=== PATIENT | female | born 1950 | race Caucasian/White ===

== ENCOUNTER 2017-04-29 08:28 | Inpatient (IN) | payer BC ==
[2017-04-24 12:05] LABS: BASOPHILS % (AUTO) 0.4 % (0-1); EOSINOPHILS # (AUTO) 0.1 X10'3 (0-0.9); EOSINOPHILS % (AUTO) 2.2 % (0-6); LYMPHOCYTES # (AUTO) 1.1 X10'3 (1.1-4.8); LYMPHOCYTES % (AUTO) 16.8 % (21-51); MEAN CORPUSCULAR HEMOGLOBIN 31.7 PG (27.0-31.0); MEAN CORPUSCULAR HGB CONC 33.2 % (33.0-36.5); MEAN CORPUSCULAR VOLUME 95.4 FL (78-98); MONOCYTES # (AUTO) 0.6 X10'3 (0-0.9); MONOCYTES % (AUTO) 10.2 % (2-12); NEUTROPHILS # (AUTO) 4.4 X10'3 (1.8-7.7); NEUTROPHILS % (AUTO) 70.4 % (42-75); PRE OP HEMATOCRIT 36.6 % (35.0-45.0); PRE OP HEMOGLOBIN 12.1 g/dL (12.0-16.0); PRE OP PLATELET COUNT 242 X10'3 (140-440); RED BLOOD COUNT 3.83 X10'6 (4.20-5.60); RED CELL DISTRIBUTION WIDTH 13.2 % (11.5-14.5)
[2017-04-24 12:27] LABS: ALBUMIN 3.8 G/DL (3.4-5.0); ALBUMIN/GLOBULIN RATIO 1.1 (1.1-1.5); ALKALINE PHOSPHATASE 99 IU/L (46-116); BLOOD UREA NITROGEN 37 MG/DL (7-18); BUN/CREATININE RATIO 29.6 (6.6-38.0); CALCIUM 9.4 MG/DL (8.5-10.1); CHLORIDE 105 MMOL/L (99-107); CREATININE 1.25 MG/DL (0.40-0.90); PRE OP ANION GAP 5 (8-16); PRE OP AST 50 U/L (10-37); PRE OP BILIRUB, TOTAL 0.3 MG/DL (0.0-1.0); PRE OP GLUCOSE 78 MG/DL (70-104); PRE OP POTASSIUM 4.6 MMOL/L (3.4-5.1); PRE OP SODIUM 141 MMOL/L (135-145); TOTAL PROTEIN 7.2 G/DL (6.4-8.2); eGFR 43 ML/MIN
[2017-04-24 12:28] LABS: PRE OP ALT 89 U/L (30-65)
[2017-04-24 12:51] LABS: PRE OP PROTIME 10.4 SECONDS (9.0-12.0)
[~2017-04-29] VITALS: Ht 165.1 cm; Wt 88.5 kg
[2017-04-29] VITALS (15 sets, daily range): BP systolic 103–137; BP diastolic 45–66
[~2017-04-29 08:28] MED LIST: ALBU8.5H8 INH; BIOT10005; BUPR75TA12 PO; CITA20TA19 PO; GABA-532 PO; LEVO100T PO; LOSA50TA37 PO; MIRA25TA PO; MONT10TA21 PO; MULT-933 PO; OXYB5TAB29 PO; TUMERIC; UBID100C45 PO; [UNRECOGNIZED DRUG - CODE]; ceFAZolin 2gm in dextrose, iso 100 ML IV ONE; famotidine 20mg tablet PO ONE; ringers solution, lacted 1,000 ML IV SCH; vancomycin inj 1,500 MG in normal saline 300ml IV soln IV ONE
[2017-04-29] MEDS ORDERED: ceFAZolin 1000mg inj ONE (11:14)
[2017-04-29] MEDS ORDERED: tetracaine 1% (10mg/ml) pres. free inj. ONE (11:15)
[2017-04-29] MEDS ORDERED: fentaNYL/PF 50MCG/1 ML 2ML syringe ONE ×2 (11:24→13:11)
[2017-04-29] MEDS ORDERED: midazolam 2 mg/2 ml injection ONE ×3 (11:24→12:28)
[2017-04-29] MEDS ORDERED: MORPHINE SULFATE/PF 0.5 MG/ML 10ML AMPUL ONE (11:24)
[2017-04-29] MEDS ORDERED: propofol inj 20 ML IV ONE ×3 (11:32→13:51)
[2017-04-29] MEDS ORDERED: epiNEPHrine 1 mg/ml inj ONE (11:33)
[2017-04-29] MEDS ORDERED: tranexamic acid inj. 1,000 MG in normal saline 100ml IV soln 90 ML IV ONE (12:30)
[2017-04-29] MEDS ORDERED: phenylephrine 10mg/ml inj IV ONE (12:55)
[2017-04-29] MEDS ORDERED: diphenhydrAMINE 50 mg/ml inj ONE (12:55)
[2017-04-29] MEDS ORDERED: ePHEDrine 50MG/ML INJ. ONE (12:55)
[2017-04-29] MEDS ORDERED: glycopyrrolate 0.2mg/ml inj ONE (12:57)
[2017-04-29] MEDS ORDERED: ROPIVAcaine 0.5% (5mg/ml) 30ml vial ONE (13:30)
[2017-04-29] MEDS ORDERED: naloxone 2mg/2ml inj 1.8 MG in normal saline 500ml IV soln 500 ML IV PRN (13:46)
[2017-04-29] MEDS ORDERED: ringers solution, lacted 1,000 ML IV SCH (13:46)
[2017-04-29] MEDS ORDERED: diphenhydrAMINE 50 mg/ml inj IV PRN (13:50)
[2017-04-29] MEDS ORDERED: meperidine/PF 25mg/ml syringe IV PRN ×3 (13:50)
[2017-04-29] MEDS ORDERED: ondansetron/PF 4mg/2ml inj IV PRN ×3 (13:50→14:45)
[2017-04-29] MEDS ORDERED: proCHLORperazine 10 MG/2 ml inj IV PRN (13:50)
[2017-04-29] MEDS ORDERED: dexamethasone 4mg/ml inj ONE (14:18)
[2017-04-29] MEDS ORDERED: cloNIDine hcl/PF 100mcg/ml inj ONE (14:18)
[2017-04-29] MEDS ORDERED: diphenhydrAMINE 25mg capsule PO PRN ×2 (14:45)
[2017-04-29] MEDS ORDERED: tranexamic acid inj. 880 MG in normal saline 100ml IV soln 100 ML IV ONE (14:45)
[2017-04-29] MEDS ORDERED: HYDROmorphone 1 mg/ml syringe IV PRN (14:45)
[2017-04-29] MEDS ORDERED: bisacodyl 10mg suppository rectal RC PRN (14:45)
[2017-04-29] MEDS ORDERED: magnesium hydroxide 30ml (MOM) UD suspension PO PRN (14:45)
[2017-04-29] MEDS ORDERED: acetaminophen 325mg tablet PO PRN (14:45)
[2017-04-29] MEDS ORDERED: albuterol 2.5 MG/3 ML nebule NEB PRN (14:45)
[2017-04-29] MEDS: potassium cl 20mEq in 1/2 NS 1,000 ML IV SCH (16:34)
[2017-04-29] MEDS: cefazolin 1gm/NS 100mL 100 ML IV SCH (16:38)
[2017-04-29] MEDS: HYDROcodone/acetaminophen 10/325mg tab PO PRN ×2 (17:00→20:34)
[2017-04-29] MEDS: aspirin 81mg tab.chew PO SCH (17:32)
[2017-04-29] MEDS ORDERED: vancomycin/NS 1 GM ADD-VANTAGE 250 ML IV SCH (20:00)
[2017-04-29] MEDS: montelukast 10mg tablet PO SCH (20:33)
[2017-04-29] MEDS: sennosides 8.6mg tablet PO SCH (20:33)
[2017-04-29] MEDS: buPROPion 75mg tablet PO SCH (20:34)
[2017-04-29] MEDS: citalopram 20mg tablet PO SCH (20:34)
[2017-04-29] MEDS: gabapentin 300mg capsule PO SCH (20:34)
[2017-04-30] MEDS: cefazolin 1gm/NS 100mL 100 ML IV SCH (00:49)
[2017-04-30] MEDS: HYDROcodone/acetaminophen 10/325mg tab PO PRN ×5 (00:50→15:35)
[2017-04-30] MEDS: potassium cl 20mEq in 1/2 NS 1,000 ML IV SCH ×2 (00:55→17:37)
[2017-04-30 02:00] VITALS: BP 125/64
[2017-04-30 06:00] VITALS: BP 150/68
[2017-04-30 06:54] LABS: BASOPHILS % (AUTO) 0.1 % (0-1); EOSINOPHILS # (AUTO) 0.1 X10'3 (0-0.9); EOSINOPHILS % (AUTO) 1.3 % (0-6); HEMATOCRIT 28.4 % (35.0-45.0); HEMOGLOBIN 9.6 g/dl (12.0-16.0); LYMPHOCYTES # (AUTO) 0.4 X10'3 (1.1-4.8); MEAN CORPUSCULAR HEMOGLOBIN 31.8 PG (27.0-31.0); MEAN CORPUSCULAR HGB CONC 33.9 % (33.0-36.5); MEAN CORPUSCULAR VOLUME 93.8 FL (78-98); MEAN PLATELET VOLUME 7.8 FL (7.4-10.4); MONOCYTES # (AUTO) 1.2 X10'3 (0-0.9); NEUTROPHILS % (AUTO) 83.6 % (42-75); PLATELET COUNT 183 X10'3 (140-440); RED BLOOD COUNT 3.03 X10'6 (4.20-5.60); WHITE BLOOD COUNT 10.8 X10'3 (4.5-11.0)
[2017-04-30 07:09] LABS: ALANINE AMINOTRANSFERASE 62 U/L (12-78); ALBUMIN/GLOBULIN RATIO 1.1 (1.1-1.5); ALKALINE PHOSPHATASE 75 IU/L (46-116); ANION GAP 4 (8-16); ASPARTATE AMINO TRANSFERASE 45 U/L (10-37); BILIRUBIN,TOTAL 0.3 MG/DL (0.1-1.0); BLOOD UREA NITROGEN 29 MG/DL (7-18); BUN/CREATININE RATIO 23.6 (6.6-38.0); CHLORIDE 105 MMOL/L (99-107); CREATININE 1.23 MG/DL (0.40-0.90); GLUCOSE 149 MG/DL (70-104); POTASSIUM 4.7 MMOL/L (3.5-5.1); SODIUM 135 MMOL/L (135-145); TOTAL CARBON DIOXIDE 25.9 MMOL/L (24-32); TOTAL PROTEIN 5.8 G/DL (6.4-8.2); eGFR 44 ML/MIN
[2017-04-30] MEDS ORDERED: mirabegron 25mg ER tablet PO SCH (08:00)
[2017-04-30] MEDS: MYRBETRIQ 25 MG PO SCH (08:00)
[2017-04-30] MEDS: levoTHYROXINE 100mcg tablet PO SCH (08:32)
[2017-04-30] MEDS: aspirin 81mg tab.chew PO SCH ×2 (08:32→17:37)
[2017-04-30] MEDS: losartan 50mg tablet PO SCH (08:32)
[2017-04-30] MEDS: buPROPion 75mg tablet PO SCH ×3 (08:33→20:35)
[2017-04-30 10:00] VITALS: BP 142/66
[2017-04-30] MEDS ORDERED: ketorolac trometh. 30mg/ml inj. IM PRN (16:35)
[2017-04-30 18:30] VITALS: BP 156/114
[2017-04-30] MEDS: citalopram 20mg tablet PO SCH (20:35)
[2017-04-30] MEDS: gabapentin 300mg capsule PO SCH (20:35)
[2017-04-30] MEDS: sennosides 8.6mg tablet PO SCH (20:35)
[2017-04-30] MEDS: montelukast 10mg tablet PO SCH (20:35)
[2017-04-30 22:00] VITALS: BP 165/70
[2017-05-01] MEDS: HYDROcodone/acetaminophen 10/325mg tab PO PRN ×6 (00:53→23:54)
[2017-05-01 03:00] VITALS: BP 148/70
[2017-05-01 06:29] LABS: BASOPHILS % (AUTO) 0.1 % (0-1); EOSINOPHILS # (AUTO) 0.1 X10'3 (0-0.9); EOSINOPHILS % (AUTO) 1.4 % (0-6); HEMATOCRIT 26.6 % (35.0-45.0); HEMOGLOBIN 8.9 g/dl (12.0-16.0); LYMPHOCYTES # (AUTO) 0.8 X10'3 (1.1-4.8); LYMPHOCYTES % (AUTO) 7.6 % (21-51); MEAN CORPUSCULAR HEMOGLOBIN 31.6 PG (27.0-31.0); MEAN CORPUSCULAR HGB CONC 33.6 % (33.0-36.5); MEAN PLATELET VOLUME 7.9 FL (7.4-10.4); MONOCYTES # (AUTO) 1.4 X10'3 (0-0.9); MONOCYTES % (AUTO) 13.2 % (2-12); NEUTROPHILS % (AUTO) 77.7 % (42-75); PLATELET COUNT 160 X10'3 (140-440); RED BLOOD COUNT 2.83 X10'6 (4.20-5.60); WHITE BLOOD COUNT 10.2 X10'3 (4.5-11.0)
[2017-05-01] MEDS: potassium cl 20mEq in 1/2 NS 1,000 ML IV SCH (06:41)
[2017-05-01 06:59] LABS: ALANINE AMINOTRANSFERASE 52 U/L (12-78); ALBUMIN 2.7 G/DL (3.4-5.0); ALBUMIN/GLOBULIN RATIO 0.8 (1.1-1.5); ALKALINE PHOSPHATASE 83 IU/L (46-116); ANION GAP 6 (8-16); ASPARTATE AMINO TRANSFERASE 35 U/L (10-37); BILIRUBIN,TOTAL 0.4 MG/DL (0.1-1.0); BLOOD UREA NITROGEN 18 MG/DL (7-18); CALCIUM 8.8 MG/DL (8.5-10.1); CHLORIDE 106 MMOL/L (99-107); GLUCOSE 116 MG/DL (70-104); POTASSIUM 3.9 MMOL/L (3.5-5.1); SODIUM 139 MMOL/L (135-145); TOTAL CARBON DIOXIDE 27.1 MMOL/L (24-32); TOTAL PROTEIN 5.9 G/DL (6.4-8.2); eGFR 56 ML/MIN
[2017-05-01] MEDS: MYRBETRIQ 25 MG PO SCH (08:00)
[2017-05-01] MEDS: losartan 50mg tablet PO SCH (08:47)
[2017-05-01] MEDS: aspirin 81mg tab.chew PO SCH ×2 (08:47→17:14)
[2017-05-01] MEDS: levoTHYROXINE 100mcg tablet PO SCH (08:47)
[2017-05-01] MEDS: buPROPion 75mg tablet PO SCH ×3 (08:47→21:14)
[2017-05-01] MEDS ORDERED: ketorolac trometh. 30mg/ml inj. IV ONE (08:55)
[2017-05-01 11:00] VITALS: BP 124/60
[2017-05-01 18:30] VITALS: BP 135/69
[2017-05-01] MEDS: citalopram 20mg tablet PO SCH (21:13)
[2017-05-01] MEDS: gabapentin 300mg capsule PO SCH (21:13)
[2017-05-01] MEDS: sennosides 8.6mg tablet PO SCH (21:13)
[2017-05-01] MEDS: montelukast 10mg tablet PO SCH (21:14)
[2017-05-01 22:00] VITALS: BP 135/59
[2017-05-02] MEDS: HYDROcodone/acetaminophen 10/325mg tab PO PRN ×3 (04:16→15:06)
[2017-05-02 05:00] VITALS: BP 129/89
[2017-05-02 06:05] LABS: BASOPHILS % (AUTO) 0.2 % (0-1); EOSINOPHILS # (AUTO) 0.1 X10'3 (0-0.9); EOSINOPHILS % (AUTO) 0.8 % (0-6); HEMATOCRIT 24.8 % (35.0-45.0); HEMOGLOBIN 8.3 g/dl (12.0-16.0); LYMPHOCYTES # (AUTO) 0.9 X10'3 (1.1-4.8); LYMPHOCYTES % (AUTO) 11.7 % (21-51); MEAN CORPUSCULAR HEMOGLOBIN 31.5 PG (27.0-31.0); MEAN CORPUSCULAR HGB CONC 33.2 % (33.0-36.5); MEAN CORPUSCULAR VOLUME 94.8 FL (78-98); MEAN PLATELET VOLUME 8.1 FL (7.4-10.4); MONOCYTES # (AUTO) 0.9 X10'3 (0-0.9); NEUTROPHILS # (AUTO) 5.7 X10'3 (1.8-7.7); NEUTROPHILS % (AUTO) 75.3 % (42-75); PLATELET COUNT 172 X10'3 (140-440); RED BLOOD COUNT 2.62 X10'6 (4.20-5.60); RED CELL DISTRIBUTION WIDTH 13.4 % (11.5-14.5); WHITE BLOOD COUNT 7.6 X10'3 (4.5-11.0)
[2017-05-02 06:54] LABS: ALANINE AMINOTRANSFERASE 114 U/L (12-78); ALBUMIN 2.3 G/DL (3.4-5.0); ALBUMIN/GLOBULIN RATIO 0.7 (1.1-1.5); ALKALINE PHOSPHATASE 197 IU/L (46-116); ANION GAP 6 (8-16); ASPARTATE AMINO TRANSFERASE 141 U/L (10-37); BILIRUBIN,TOTAL 0.4 MG/DL (0.1-1.0); BLOOD UREA NITROGEN 26 MG/DL (7-18); CALCIUM 8.7 MG/DL (8.5-10.1); CHLORIDE 106 MMOL/L (99-107); GLUCOSE 104 MG/DL (70-104); SODIUM 139 MMOL/L (135-145); TOTAL CARBON DIOXIDE 27.3 MMOL/L (24-32); TOTAL PROTEIN 5.8 G/DL (6.4-8.2); eGFR 41 ML/MIN
[2017-05-02] MEDS: buPROPion 75mg tablet PO SCH ×2 (07:19→12:44)
[2017-05-02] MEDS: levoTHYROXINE 100mcg tablet PO SCH (07:19)
[2017-05-02] MEDS: aspirin 81mg tab.chew PO SCH (07:19)
[2017-05-02] MEDS: MYRBETRIQ 25 MG PO SCH (07:19)
[2017-05-02] MEDS: losartan 50mg tablet PO SCH (07:19)
[2017-05-02] MEDS ORDERED: pantoprazole 40mg Tablet.DR PO SCH (07:30)
[2017-05-02 10:00] VITALS: BP 108/76
== END 2017-05-02 16:10 | DRG 470 ==
LOC: PAS IN 08:28 → EDSTATUS 11:15 → ORTHO 4S 15:45
PROVIDERS: ADMIT Orthopaedic Surgery; ATTEND Orthopaedic Surgery
PROC: 0SRC0J9 Replacement of Right Knee Joint with Synthetic Substitute, Cemented, Open Approach (ICD-10-PCS; principal; 2017-04-29 11:38)
DX: M17.11 Unilateral primary osteoarthritis, right knee (principal); D62 Acute posthemorrhagic anemia; I10 Essential (primary) hypertension; J45.909 Unspecified asthma, uncomplicated; F32.9 Major depressive disorder, single episode, unspecified; R32 Unspecified urinary incontinence; E03.9 Hypothyroidism, unspecified; K21.9 Gastro-esophageal reflux disease without esophagitis; Z88.2 Allergy status to sulfonamides; Z88.6 Allergy status to analgesic agent; Z88.1 Allergy status to other antibiotic agents; Z88.8 Allergy status to other drugs, medicaments and biological substances; Z91.041 Radiographic dye allergy status; Z85.850 Personal history of malignant neoplasm of thyroid; Z79.899 Other long term (current) drug therapy
CPT/HCPCS: 36415; 80053; 85025; 85610; 85730; 86885; 86900; 86901; 86920; 87070; 93005; 94760; 97110; 97116; 97162; 97530; A6223; A6449; A6454; A7000; C1713; C1758; C1776; J0171; J0690; J0735; J1100; J1200; J1885; J2250; J2270; J2274; J2370; J2704; J2795; J3010; J3370; J3490; J7030; J7120

== ENCOUNTER 2020-01-12 15:41 | Emergency (ER) | payer MEDICARE, BC ==
[~2020-01-12] VITALS: Ht 172.7 cm; Wt 90.0 kg
[~2020-01-12 15:41] MED LIST changes: -BIOT10005; -LOSA50TA37 PO; +LOSA50TA64 PO; -MULT-933 PO; -OXYB5TAB29 PO; -TUMERIC; -UBID100C45 PO; -[UNRECOGNIZED DRUG - CODE]; -ceFAZolin 2gm in dextrose, iso 100 ML IV ONE; -famotidine 20mg tablet PO ONE; -ringers solution, lacted 1,000 ML IV SCH; -vancomycin inj 1,500 MG in normal saline 300ml IV soln IV ONE
--- NOTE | 2020-01-12 16:38 | NUR ---
Pt complains of constipation, takes iron, hx of gastric bypass. Takes stool softner and tried an emema. Pt complains of pain. Feels nauseous when she tries to have a BM. Has passed gas. options to patient: Miralax Mag Citrate Manual disimpaction
[2020-01-12] MEDS ORDERED: polyethylene glycol 3350 17gm powd pack PO STA (16:43)
[2020-01-12] MEDS ORDERED: magnesium citrate 296ml oral solution PO ONE (16:45)
[2020-01-12] MEDS ORDERED: bisacodyl 10mg suppository rectal RC STA (16:51)
[2020-01-12] MEDS ORDERED: calcium carbonate 500mg chew tablet PO STA (17:47)
[2020-01-12] MEDS ORDERED: MAGN296S68 PO (18:19)
[2020-01-12] MEDS ORDERED: POLY17PO10 PO (18:19)
[2020-01-12] MEDS ORDERED: BISA10SU64 RC (18:57)
[2020-01-12 19:20] VITALS: BP 133/70
== END 2020-01-12 19:21 | disposition home or self-care (01) ==
LOC: ER 15:41
DX: K59.00 Constipation, unspecified (principal); R11.0 Nausea; Z98.890 Other specified postprocedural states; Z88.2 Allergy status to sulfonamides; Z88.5 Allergy status to narcotic agent; Z88.1 Allergy status to other antibiotic agents; Z88.8 Allergy status to other drugs, medicaments and biological substances; Z79.899 Other long term (current) drug therapy
CPT/HCPCS: 99284

== ENCOUNTER → 2020-11-10 | Outpatient (CLI) | payer MEDICARE ==
[2020-11-10] VITALS (18 sets, daily range): BP systolic 94–153; BP diastolic 29–82
[~2020-11-10] MED LIST changes: +BISA10SU64 RC; +MAGN296S68 PO
== END | disposition home or self-care (01) ==
LOC: CARD DIAG 07:38
PROVIDERS: ATTEND Internal Medicine Interventional Cardiology
DX: R55 Syncope and collapse (principal)
CPT/HCPCS: 93660

== ENCOUNTER 2025-03-04 07:53 | Outpatient (CLI) | payer MEDICARE ==
[~2025-03-04 07:53] MED LIST changes: +ALBU8.5H17 INH; -ALBU8.5H8 INH; +BUPR-297 PO; -BUPR75TA12 PO; +MONT-48 PO; -MONT10TA21 PO
[2025-03-04] MEDS ORDERED: diatrozoate meglu/diatrozoate sod (37% iodine) 120ML oral solution ONE (08:00)
--- NOTE | 2025-03-04 17:53 | RADIOLOGY REPORT ---
Gastrografin enema HISTORY: Diverticulosis with history of diverticulitis. With the patient in a left lateral decubitus position the barium enema tip was inserted after KY jelly lubrication. The insufflation balloon was filled with air and next gentle administration of Gastrografin diluted was evaluated under direct fluoroscopic evaluation. Initially note made of extensive sigmoid colon diverticuli with evidence of spasm. This resolved with further increase filling throughout the colon. Note made of a quite cephalic position of the splenic flexure. Somewhat tortuous a sending colon with eventual filling of the distal ileum. Compression of the terminal ileum was performed demonstrating a relatively unremarkable mucosal pattern. The Gastrografin bag was then placed low for gravity drainage of the distended colon without incident. Total fluoroscopy time was 3.3 minutes with dose of 221.88 mGy. IMPRESSION: Extensive sigmoid colon diverticuli with some evidence of spasm particularly at the proximal sigmoid colon. Markedly cephalic position of the splenic flexure.
== END 2025-03-04 23:59 | disposition home or self-care (01) ==
LOC: RAD 07:53
PROVIDERS: ATTEND Radiology Diagnostic Radiology
DX: K57.32 Diverticulitis of large intestine without perforation or abscess without bleeding (principal)
CPT/HCPCS: 74270; Q9963